=== PATIENT | female | born 1995 | race African-American/Black ===

== ENCOUNTER 2018-02-03 01:24 | Emergency (ER) | payer OTHER ==
[~2018-02-03] VITALS: Ht 177.8 cm; Wt 93.0 kg
--- NOTE | 2018-02-03 01:30 | NUR ---
PT BB PARENTS C/O OF GENERALIZED WEAKNESS, SOB, AND "FEELING LIKE IM IN A BUBBLE". PT IS AAOX4. PT STATES +N,-V/D. PT AMBULATED WITH STEADY GAIT TO ER BED 9. VSS. SKIN WNL. NO S/S OF ACUTE DISTRESS NOTED. RESP EVEN AND UNLABORED. PT PLACED ON MONITOR AND POX. PT SAFETY AND COMFORT MEASURES IN PLACE. AWAITING MD FOR EVAL.
[2018-02-03] MEDS ORDERED: ONDANSETRON HCL/PF - ER 4 MG/2 ML VIAL IV ONE (02:00)
[2018-02-03] MEDS ORDERED: IV NS 0.9% 1,000 ML BAG IV ONE (02:00)
[2018-02-03] MEDS ORDERED: ONDANSETRON HCL/PF 4 MG/2 ML VIAL ONE (02:17)
--- NOTE | 2018-02-03 02:23 | NUR ---
PT UNABLE TO GIVE URINE SAMPLE AT THIS TIME. MADE AWARE. WILL CONTINUE TO MONITOR PT.
[2018-02-03 02:27] LABS: BASOPHILS # (AUTO) 0.1 /CMM (0.0-0.2); BASOPHILS % (AUTO) 0.8 % (0.0-2.0); EOSINOPHILS % (AUTO) 0.5 % (0.0-6.0); HEMATOCRIT 39 % (33-45); HEMOGLOBIN 13.1 g/dL (11.5-14.8); LYMPHOCYTES # (AUTO) 1.7 /CMM (0.8-4.8); LYMPHOCYTES % (AUTO) 24.2 % (20.0-44.0); MEAN CORPUSCULAR HGB CONC 34 g/dl (31.0-36.0); MEAN CORPUSCULAR VOLUME 84 fL (82-100); MONOCYTES # (AUTO) 0.4 /CMM (0.1-1.30); NEUTROPHILS % (AUTO) 69.5 % (43.0-81.0); PLATELET COUNT (AUTO) 391 /CMM (150-450); RDW COEFFICIENT OF VARIATION 12.7 (11.5-15.0); RED BLOOD CELL COUNT(AUTO) 4.59 MIL/uL (4.0-5.2); WHITE BLOOD COUNT (AUTO) 7.2 K/uL (4.3-11.0)
[2018-02-03 02:43] LABS: D-DIMER 0.25 mg/L(FEU (0.17-0.50); INR 0.98 (0.87-1.13)
[2018-02-03 02:45] LABS: TROPONIN I < 0.017 ng/mL (0.00-0.056)
--- NOTE | 2018-02-03 02:56 | NUR ---
PT TO RESTROOM TO GIVE URINE SAMPLE
[2018-02-03 02:58] LABS: CALCIUM, SERUM 9.7 mg/dL (8.5-10.1); CARBON DIOXIDE 29 mmol/L (21-32); CHLORIDE 103 mmol/L (98-107); CREATININE 0.8 mg/dL (0.6-1.3); GLUCOSE 92 mg/dL (74-106); POTASSIUM 3.3 mmol/L (3.5-5.1); SODIUM SERUM 140 mmol/L (136-145); UREA NITROGEN, BLOOD 6 mg/dL (7-18)
[2018-02-03] MEDS ORDERED: POTASSIUM CHLORIDE 20 MEQ TAB.PRT.SR PO ONE ×2 (03:28→03:30)
[2018-02-03] MEDS ORDERED: ALPRAZOLAM 0.25 MG TABLET ONE (03:28)
[2018-02-03] MEDS ORDERED: ALPRAZOLAM 0.25 MG TABLET PO ONE (03:30)
[2018-02-03 04:22] VITALS: BP 128/87
--- NOTE | 2018-02-03 04:22 | NUR ---
Patient discharged to home in stable condition. Written and verbal after care instructions given. Patient verbalizes understanding of instruction.IV removed. Catheter intact and site benign. Pressure and 4x4 applied to site. No bleeding noted. PT ambulatory with a steady gait VITAL SIGNS WITHIN NORMAL LIMITS.
== END 2018-02-03 04:22 | disposition home or self-care (01) ==
LOC: ER 01:25
DX: F41.9 Anxiety disorder, unspecified (principal); E87.6 Hypokalemia; F15.10 Other stimulant abuse, uncomplicated; F12.10 Cannabis abuse, uncomplicated
CPT/HCPCS: 36415; 71045; 80048; 80305; 84484; 85025; 85378; 85730; 93005; 99285; G0480; J2405 ×2; J7030; Z7610

== ENCOUNTER 2019-07-19 15:50 | Inpatient (IN) | payer MEDICAID, OTHER ==
[~2019-07-19] VITALS: Ht 177.8 cm; Wt 81.6 kg
--- NOTE | 2019-07-19 16:05 | NUR ---
BIBRA 41 PT TOOK 60 PILLS OF HYDROXIZINE PER EMS. HX OF SI. PT AAOX3, SLOW TO ANS, DROWSY. +SI. DENIES CP, SOB, N/V, WEAKNESS @ THIS TIME. AWAITING EVAL BY ERMU[facility]. PLACED ON SAFETY INSTRUCTOR. WILL CONT TO MONITOR.
[2019-07-19] MEDS ORDERED: IV NS 0.9% 1,000 ML BAG IV ONE (16:30)
[2019-07-19 16:35] LABS: EOSINOPHILS % (AUTO) 1.1 % (0.0-6.0); HEMATOCRIT 36 % (33-45); HEMOGLOBIN 12.3 g/dL (11.5-14.8); LYMPHOCYTES % (AUTO) 23.9 % (20.0-44.0); MEAN CORPUSCULAR HGB CONC 34 g/dl (31.0-36.0); MEAN CORPUSCULAR VOLUME 89 fL (82-100); MONOCYTES # (AUTO) 0.2 /CMM (0.1-1.30); MONOCYTES % (AUTO) 5.4 % (2.0-12.0); NEUTROPHILS # (AUTO) 2.9 /CMM (1.8-8.9); NEUTROPHILS % (AUTO) 68.6 % (43.0-81.0); PLATELET COUNT (AUTO) 294 /CMM (150-450); WHITE BLOOD COUNT (AUTO) 4.2 K/uL (4.3-11.0)
[2019-07-19 16:44] LABS: CALCIUM, SERUM 8.7 mg/dL (8.5-10.1); CARBON DIOXIDE 27 mmol/L (21-32); CHLORIDE 107 mmol/L (98-107); CREATININE 0.9 mg/dL (0.6-1.3); GLUCOSE 96 mg/dL (74-106); POTASSIUM 3.3 mmol/L (3.5-5.1); SODIUM SERUM 140 mmol/L (136-145); UREA NITROGEN, BLOOD 6 mg/dL (7-18)
[2019-07-19 16:49] LABS: ALANINE AMINOTRANSFERASE 18 U/L (12-78); ALBUMIN 4.2 g/dL (3.4-5.0); ALCOHOL, BLOOD < 3 mg/dL (0-0); ALKALINE PHOSPHATASE 47 U/L (46-116); ASPARTATE AMINOTRANSFERASE 12 U/L (15-37); BILIRUBIN,DIRECT 0.2 mg/dL (0.0-0.2); BILIRUBIN,TOTAL 1.1 mg/dL (0.2-1.0); TOTAL PROTEIN, SERUM 7.3 g/dL (6.4-8.2)
[2019-07-19 16:50] LABS: ACETAMINOPHEN 0 ug/ml (10-30); SALICYLATE < 0.2 mg/dL (2.8-20.0)
[2019-07-19 17:01] LABS: CREATINE KINASE, TOTAL 50 U/L (26-192)
[2019-07-19] MEDS ORDERED: GABA600T12 PO (17:03)
[2019-07-19] MEDS ORDERED: VENL75TA4 PO (17:03)
[2019-07-19] MEDS ORDERED: HYDROXYZINE HCL (17:03)
[2019-07-19] MEDS ORDERED: PRAZ1CAP5 PO (17:09)
[2019-07-19] MEDS ORDERED: HYDR-3024 PO (17:09)
[2019-07-19 18:20] LABS: APPEARANCE,URINE Clear (CLEAR); BILIRUBIN,URINE Negative (NEGATIVE); BLOOD, URINE Large Ery/uL (NEGATIVE); COLOR,URINE Yellow (YELLOW); KETONES,URINE Negative (NEGATIVE); LEUKOCYTE ESTERASE ,URINE Negative (NEGATIVE); NITRITE, URINE Negative (NEGATIVE); PROTEIN,URINE Negative (NEGATIVE); UGLUCOSE Negative (NEGATIVE); UROBILINOGEN,URINE 0.2 EU/dL (0.2)
[2019-07-19 18:31] LABS: BACTERIA,URINE Few /HPF (None Seen); SQUAMOUS EPITHELIAL CELL,UR Few /HPF (None Seen); URINE AMORPHOUS URATE Few /HPF (None Seen); WBC,URINE 0-2 /HPF (0-3)
[2019-07-19 18:32] LABS: MUCUS,URINE Few /LPF (None Seen)
[2019-07-19] MEDS ORDERED: ONDANSETRON HCL/PF 4 MG/2 ML VIAL ONE (18:46)
--- NOTE | 2019-07-19 18:51 | NUR ---
PT AAOX4, SITTING UP, SKIN PINK WARM & DRY. RR EVEN & UNLABORED. MEDICATED FOR NAUSEA, PT SHANT WELL. FAMILY @ BS & WILL CONT TO MONITOR.
[2019-07-19] MEDS ORDERED: ONDANSETRON HCL/PF 4 MG/2 ML VIAL IV ONE (19:00)
[2019-07-19 20:00] VITALS: BP 100/62
--- NOTE | 2019-07-19 20:08 | NUR ---
NURSING SUP GAVE TELE BED 310-1.
[2019-07-19] MEDS ORDERED: MAGNESIUM HYDROXIDE 30 ML UDC PO PRN (21:00)
[2019-07-19] MEDS ORDERED: ONDANSETRON HCL/PF 4 MG/2 ML VIAL IVP PRN (21:00)
[2019-07-19] MEDS ORDERED: MAG HYDROX/AL HYDROX/SIMETH 30 ML UDC PO PRN (21:00)
[2019-07-19] MEDS ORDERED: ACETAMINOPHEN 325 MG TABLET PO PRN (21:00)
--- NOTE | 2019-07-19 21:24 | NUR ---
REPORT GIVEN TO JESSICA MCGUIRE FOR BRAVO
[2019-07-19] MEDS ORDERED: POTASSIUM CHLORIDE 20 MEQ TAB.PRT.SR PO ONE (21:30)
[2019-07-19 22:00] VITALS: BP 100/62
[2019-07-19] MEDS: IV 1/2NS 1000 ML 1,000 ML IV PRN (22:18)
--- NOTE | 2019-07-19 22:30 | NUR ---
MATHEMATICAL ENGINEER NOTE: RECEIVE PATIENT FROM ER, NO ACUTE DISTRESS NOTED, FAMILY AT BEDSIDE. IV TO RAC IN PLACE. ORIENTED PATIENT TO ROOM AND USE OF CALL LIGHT, SITTER AT BEDSIDE. CALLED ER TO CONFIRM IF POTASSIUM WAS GIVEN OR NOT IN ER. KDUR 20MEQ 1 TAB GIVEN ON FLOOR, PER MD ORDER. IV FLUID OF 1/2NS AT 80ML/HR STARTED. SUICIDE PRECAUTIONS OBSERVED WITH Q15MIN CHECKS BY SITTER. BED LOCKED AND IN LOWEST POSITION, CALL LIGHT IN REACH. WILL CONTINUE TO MONITOR. Addendum: 07/20/19 at 0202 by CANDI RANGEL RN TELE READING SR [id number]
[2019-07-20] VITALS (7 sets, daily range): BP systolic 92–112; BP diastolic 48–67
--- NOTE | 2019-07-20 06:15 | NUR ---
DIRECTOR OF CONTENT AND PROGRAMMING NOTE: PATIENT RESTING IN BED, NO ACUTE DISTRESS NOTED, FAMILY AT BEDSIDE. IV TO RAC IN PLACE, INFUSING 1/2MS AT 80ML/HR. SUICIDE PRECAUTIONS OBSERVED WITH Q15MIN CHECKS BY SITTER. BED LOCKED AND IN LOWEST POSITION, CALL LIGHT IN REACH. WILL ENDORSE TO DAY NURSE TO CONTINUE WITH PLAN OF CARE.
[2019-07-20 06:27] LABS: BASOPHILS % (AUTO) 0.6 % (0.0-2.0); EOSINOPHILS % (AUTO) 1.8 % (0.0-6.0); HEMATOCRIT 32 % (33-45); LYMPHOCYTES # (AUTO) 1.7 /CMM (0.8-4.8); LYMPHOCYTES % (AUTO) 34.4 % (20.0-44.0); MEAN CORPUSCULAR HGB CONC 34 g/dl (31.0-36.0); MEAN CORPUSCULAR VOLUME 88 fL (82-100); MONOCYTES # (AUTO) 0.4 /CMM (0.1-1.30); MONOCYTES % (AUTO) 7.5 % (2.0-12.0); NEUTROPHILS # (AUTO) 2.8 /CMM (1.8-8.9); NEUTROPHILS % (AUTO) 55.7 % (43.0-81.0); PLATELET COUNT (AUTO) 291 /CMM (150-450); RED BLOOD CELL COUNT(AUTO) 3.64 MIL/uL (4.0-5.2)
[2019-07-20 07:14] LABS: ALBUMIN 3.4 g/dL (3.4-5.0); BILIRUBIN,TOTAL 0.6 mg/dL (0.2-1.0); CALCIUM, SERUM 8.9 mg/dL (8.5-10.1); CREATININE 0.8 mg/dL (0.6-1.3); PHOSPHORUS 4.5 mg/dL (2.5-4.9); POTASSIUM 4.1 mmol/L (3.5-5.1); THYROID STIMULATING HORMONE 5.167 uIU/mL (0.358-3.74); TOTAL PROTEIN, SERUM 6.2 g/dL (6.4-8.2)
--- NOTE | 2019-07-20 07:30 | NUR ---
SUPERVISOR FRAMING MILL NOTES PT IN BED, AWAKE, ALERT AND ORIENTED, NO COMPLAINT OF PAIN OR ANY DISCOMFORT, RESPIRATIONS NORMAL, IV FLUIDS INFUSING WELL, MOM AT BEDSIDE, PT INFORMED OF PLAN OF CARE, VERBALIZED UNDERSTANDING.
[2019-07-20] MEDS: PANTOPRAZOLE 40 MG TABLET.DR PO SCH (08:03)
--- NOTE | 2019-07-20 09:04 | NUR ---
RN NOTE RECEIVED ORDER FROM DR SOLER TO DC TELEMETRY MONITORING, TRANSFER TO MED/SURG WITH ALL MEDS. THE ORDER IS NOTED AND CARRIED OUT.
--- NOTE | 2019-07-20 10:03 | NUR ---
RN MS NOTES PT SEEN AND EXAMINED BY DR. TSE, PLAN OF CARE DISCUSSED WITH PT, VERBALIZED UNDERSTANDING, ORDERS GIVEN, NOTED AND CARRIED OUT.
[2019-07-20] MEDS ORDERED: QUETIAPINE FUMARATE 25 MG TABLET PO ONE (10:30)
--- NOTE | 2019-07-20 14:00 | NUR ---
RN MS NOTES PT IN BED, AWAKE, ALERT AND ORIENTED, SITTER AND MOM AT BEDSIDE, TYLENOL GIVEN FOR MENSTRUAL CRAMPS, IV FLUIDS INFUSING WELL, TOLERATING CURRENT DIET, NO BEHAVIOR PROBLEM NOTED, COMPLIANT WITH CARE AND INTERVENTIONS.
[2019-07-20] MEDS: VENLAFAXINE XR 150 MG CAP.SR.24H PO SCH ×2 (18:06→18:32)
--- NOTE | 2019-07-20 19:00 | NUR ---
RN MS NOTES PT IN BED, RESTING, NO COMPLAINT OF PAIN, NOT IN DISTRESS, CALL LIGHT WITHIN REACH, SITTER AND FAMILY AT BEDSIDE, PM MEDS GIVEN ORDERED, COMPLIANT AND COOPERATIVE WITH MEDS, ALL NEEDS ATTENDED.
--- NOTE | 2019-07-20 19:30 | NUR ---
MS RN OPENING NOTE RECEIVED PATIENT IN BED. A/O X4. TOLERATING ROOM AIR. RESPIRATION ARE EVEN AND LABORED. NO S/S SOB NOTED. DENIES PAIN AT THIS TIME. IN NO APPARENT DISTRESS. IV ACCESS IN RAC#18 PATENT AND SALINE LOCKED, BED IS LOW AND LOCKED, SIDE RAILS UP X2, HOB ELEVATED 60 DEGREES. CALL LIGHT WITHIN REACH. FAMILY AT BEDSIDE, 1:1 SITTER AT BEDSIDE. WILL CONTINUE TO MONITOR.
[2019-07-20] MEDS ORDERED: QUETIAPINE FUMARATE 25 MG TABLET PO SCH (20:00)
[2019-07-20] MEDS ORDERED: QUETIAPINE FUMARATE 25 MG TABLET PO PRN (21:00)
[2019-07-20] MEDS: IV 1/2NS 1000 ML 1,000 ML IV PRN (21:54)
--- NOTE | 2019-07-21 06:23 | NUR ---
MS RN CLOSING NOTE PATIENT IN BED. A/O X4. TOLERATING ROOM AIR. RESPIRATION ARE EVEN AND LABORED. NO SOB NOTED. NO C/O PAIN . NO DISTRESS NOTED. IV ACCESS IN RAC#18 PATENT AND WAS RUNNING 1/2NS @80ML/HR FOR 6 HR, REMOVED D/T PATIENTS REQUEST FOR COMFORT THROUGHOUT NIGHT, BED IS LOW AND LOCKED, SIDE RAILS UP X2, HOB ELEVATED 30GREES. CALL LIGHT WITHIN REACH. FAMILY AT BEDSIDE, 1:1 SITTER AT BEDSIDE. WILL ENDORSE TO NEXT SHIFT FOR BRAVO
[2019-07-21 07:02] LABS: BASOPHILS % (AUTO) 0.9 % (0.0-2.0); EOSINOPHILS % (AUTO) 2.3 % (0.0-6.0); HEMATOCRIT 35 % (33-45); HEMOGLOBIN 11.8 g/dL (11.5-14.8); LYMPHOCYTES # (AUTO) 1.8 /CMM (0.8-4.8); LYMPHOCYTES % (AUTO) 34.4 % (20.0-44.0); MEAN CORPUSCULAR HGB CONC 34 g/dl (31.0-36.0); MEAN CORPUSCULAR VOLUME 88 fL (82-100); MONOCYTES # (AUTO) 0.4 /CMM (0.1-1.30); MONOCYTES % (AUTO) 7.4 % (2.0-12.0); NEUTROPHILS # (AUTO) 2.8 /CMM (1.8-8.9); PLATELET COUNT (AUTO) 300 /CMM (150-450); RED BLOOD CELL COUNT(AUTO) 3.93 MIL/uL (4.0-5.2); WHITE BLOOD COUNT (AUTO) 5.1 K/uL (4.3-11.0)
[2019-07-21 07:25] LABS: CALCIUM, SERUM 8.8 mg/dL (8.5-10.1); CREATININE 0.9 mg/dL (0.6-1.3); MAGNESIUM 1.9 mg/dL (1.8-2.4); PHOSPHORUS 4.5 mg/dL (2.5-4.9); POTASSIUM 3.7 mmol/L (3.5-5.1)
--- NOTE | 2019-07-21 07:30 | NUR ---
RN MS NOTES PT IN BED, AWAKE, ALERT AND ORIENTED, CALM AND COOPERATIVE WITH CARE AND MEDICATIONS, IV FLUIDS INFUSING WELL, CALL LIGHT WITHIN REACH, MOM AT BEDSIDE, SEEN AND EXAMINED BY DR. ROBERTS.
[2019-07-21 08:00] VITALS: BP 119/74
[2019-07-21] MEDS: PANTOPRAZOLE 40 MG TABLET.DR PO SCH (08:24)
[2019-07-21] MEDS ORDERED: VENL150C2 PO (15:43)
[2019-07-21] MEDS ORDERED: QUET25TA PO (15:43)
[2019-07-21 15:58] VITALS: BP 101/61
--- NOTE | 2019-07-21 16:40 | NUR ---
RN MS NOTES PT IN BED, AWAKE, ALERT AND ORIENTED, NO COMPLAINT OF PAIN OR ANY DISCOMFORT, RESPIRATIONS NORMAL, IV FLUIDS INFUSING WELL, NO BEHAVIOR PROBLEM NOTED DURING THE SHIFT, SEEN BY DR. ROBERTS, PLAN OF CARE DISCUSSED WITH PT, VERBALIZED UNDERSTANDING, MD CLEARED PT FOR DISCHARGE, NEW PRESCRIPTIONS GIVEN, DISCHARGE ORDER GIVEN BY DR. KOHLI, DISCHARGE AND MEDICATION INSTRUCTIONS PROVIDED TO PT AND MOM, VERBALIZED UNDERSTANDING, BELONGINGS ACCOUNTED FOR, ASSISTED BY MEDICAL IMAGING TECH TO HOSPITAL LOBBY, LEFT IN STABLE CONDITION.
== END 2019-07-21 16:45 | disposition home or self-care (01) | DRG 817 ==
LOC: ER 15:52 → TELE 20:44 → MED 07-20 09:10
PROVIDERS: ADMIT Nurse Practitioner Acute Care; ATTEND Family Medicine
DX: T43.592A Poisoning by other antipsychotics and neuroleptics, intentional self-harm, initial encounter (principal); E03.9 Hypothyroidism, unspecified; E87.6 Hypokalemia; F43.10 Post-traumatic stress disorder, unspecified; Y92.89 Other specified places as the place of occurrence of the external cause; Z91.5 Personal history of self-harm; F41.9 Anxiety disorder, unspecified; F32.9 Major depressive disorder, single episode, unspecified; F90.9 Attention-deficit hyperactivity disorder, unspecified type
CPT/HCPCS: 36415; 80048-TC; 80053-TC; 80061-TC; 80076-TC; 80305; 81000-TC; 82550-TC; 83605-TC; 83735-TC; 84100-TC; 84439-TC; 84443-TC; 84703-TC; 85025-TC; 87081-TC; G0378; G0480; J2405; J3490; J7030

== ENCOUNTER 2020-04-13 19:06 | Emergency (ER) | payer MEDICAID, OTHER ==
[~2020-04-13] VITALS: Ht 177.8 cm; Wt 79.4 kg
[~2020-04-13 19:06] MED LIST: GABA600T12 PO; QUET25TA PO; VENL150C2 PO
--- NOTE | 2020-04-13 19:21 | NUR ---
ANAHI 89 FROM HOME FOR OVERDOSE ON TRAZODONE. PER PT SHE TOOK 10 TABS OF TRAZODONE 150MG EACH IN SEVERAL INTERVALS. DENIED SI. PT CURRENTLY A, OX4. REPORTED FEELING A LITTLE WEAK AND SLEEPY DUE TO THE MEDICATIONS SHE TOOK. VSS. PT WAS TRANSFERRED TO BED 4. WILL CONT TO MONITOR ,
--- NOTE | 2020-04-13 19:26 | NUR ---
BETTIE COOL AT THE BED SIDE
--- NOTE | 2020-04-13 20:00 | NUR ---
RELOCATION COMMISSIONER AT BED SIDE
--- NOTE | 2020-04-13 20:00 | NUR ---
BLOOD AND URINE COLLECTED AND SENT TO LAB
[2020-04-13 20:05] LABS: BASOPHILS # (AUTO) 0.1 /CMM (0.0-0.2); BASOPHILS % (AUTO) 0.7 % (0.0-2.0); EOSINOPHILS % (AUTO) 0.2 % (0.0-6.0); HEMATOCRIT 36 % (33-45); HEMOGLOBIN 12.1 g/dL (11.5-14.8); LYMPHOCYTES # (AUTO) 1.2 /CMM (0.8-4.8); LYMPHOCYTES % (AUTO) 13.5 % (20.0-44.0); MEAN CORPUSCULAR HGB CONC 34 g/dl (31.0-36.0); MEAN CORPUSCULAR VOLUME 91 fL (82-100); MONOCYTES # (AUTO) 0.5 /CMM (0.1-1.30); MONOCYTES % (AUTO) 6.1 % (2.0-12.0); NEUTROPHILS # (AUTO) 7.2 /CMM (1.8-8.9); NEUTROPHILS % (AUTO) 79.5 % (43.0-81.0); PLATELET COUNT (AUTO) 288 /CMM (150-450); RED BLOOD CELL COUNT(AUTO) 3.91 MIL/uL (4.0-5.2)
[2020-04-13 20:29] LABS: APPEARANCE,URINE Clear (CLEAR); BILIRUBIN,URINE Negative (NEGATIVE); BLOOD, URINE Trace-lysed Ery/uL (NEGATIVE); COLOR,URINE Yellow (YELLOW); KETONES,URINE 40 (NEGATIVE); LEUKOCYTE ESTERASE ,URINE Negative (NEGATIVE); NITRITE, URINE Negative (NEGATIVE); PH,URINE 5.5 (5.0-8.0); PROTEIN,URINE Negative (NEGATIVE); UGLUCOSE Negative (NEGATIVE); UROBILINOGEN,URINE 0.2 EU/dL (0.2)
[2020-04-13 20:31] LABS: CALCIUM, SERUM 9.4 mg/dL (8.5-10.1); CREATININE 0.8 mg/dL (0.6-1.3); POTASSIUM 3.5 mmol/L (3.5-5.1)
[2020-04-13 20:36] LABS: ALBUMIN 4.4 g/dL (3.4-5.0); BILIRUBIN,DIRECT 0.2 mg/dL (0.0-0.2); BILIRUBIN,TOTAL 0.7 mg/dL (0.2-1.0); SALICYLATE 1.1 mg/dL (2.8-20.0); TOTAL PROTEIN, SERUM 7.6 g/dL (6.4-8.2)
[2020-04-13 20:45] LABS: BACTERIA,URINE Rare /HPF (None Seen); RBC,URINE 0-2 /HPF (0-2); SQUAMOUS EPITHELIAL CELL,UR Few /HPF (None Seen); WBC,URINE 0-2 /HPF (0-3)
--- NOTE | 2020-04-13 23:00 | NUR ---
pt in bed awake and responsive,VSS. reported feeling much better and willing to leave. PA made aware
--- NOTE | 2020-04-13 23:10 | NUR ---
BETTIE COOL AT THE BED SIDE
--- NOTE | 2020-04-13 23:41 | NUR ---
PT IS MEDICALLY STABLE FOR D/C. AMBULATING WELL W/ STEADY GAITS. VSS. Patient discharged to home in stable condition. Written and verbal after care instructions given. Patient verbalizes understanding of instruction. MOM PICKED UP THE PT,
[2020-04-13 23:43] VITALS: BP 120/61
== END 2020-04-13 23:43 | disposition home or self-care (01) ==
LOC: ER 19:06
DX: T43.211A Poisoning by selective serotonin and norepinephrine reuptake inhibitors, accidental (unintentional), initial encounter (principal); F43.10 Post-traumatic stress disorder, unspecified; F90.9 Attention-deficit hyperactivity disorder, unspecified type; G47.00 Insomnia, unspecified; Z79.899 Other long term (current) drug therapy; Y92.89 Other specified places as the place of occurrence of the external cause
CPT/HCPCS: 36415; 80048; 80076; 80305; 80307; 80329; 81001; 84703; 85025; 93005; 99285; G0480; 81000-TC

== ENCOUNTER 2021-10-22 04:09 | Emergency (ER) | payer OTHER ==
[~2021-10-22] VITALS: Ht 180.3 cm; Wt 77.1 kg
--- NOTE | 2021-10-22 04:42 | NUR ---
PT BIBS FROM HOME C/O "LOWER ABDOMINAL PAIN WITH VAGINAL BLEEDING AFTER IUD CAME OUT". PT A/OX4. TOLERATING R/A WELL WITH NO SOB.
--- NOTE | 2021-10-22 05:20 | NUR ---
lac #20 , labs drawn, connected to monitor.
[2021-10-22 05:21] LABS: BASOPHILS % (AUTO) 0.5 % (0.0-2.0); EOSINOPHILS % (AUTO) 1.1 % (0.0-6.0); HEMATOCRIT 37 % (33-45); HEMOGLOBIN 12.7 g/dL (11.5-14.8); LYMPHOCYTES % (AUTO) 22.6 % (20.0-44.0); MEAN CORPUSCULAR HGB CONC 34 g/dl (31.0-36.0); MEAN CORPUSCULAR VOLUME 94 fL (82-100); MONOCYTES # (AUTO) 0.8 K/uL (0.1-1.30); MONOCYTES % (AUTO) 8.6 % (2.0-12.0); NEUTROPHILS # (AUTO) 6.1 K/uL (1.8-8.9); NEUTROPHILS % (AUTO) 67.2 % (43.0-81.0); PLATELET COUNT (AUTO) 411 K/uL (150-450); RED BLOOD CELL COUNT(AUTO) 3.96 MIL/uL (4.0-5.2)
--- NOTE | 2021-10-22 05:30 | NUR ---
ENGINEERING AND SCIENTIFIC PROGRAMMER AT BEDSIDE.
[2021-10-22 05:57] LABS: CREATININE 0.9 mg/dL (0.6-1.3); POTASSIUM 3.9 mmol/L (3.5-5.1)
--- NOTE | 2021-10-22 06:05 | NUR ---
URINE SENT TO LAB
[2021-10-22 06:18] LABS: ALBUMIN 3.9 g/dL (3.4-5.0); BILIRUBIN,DIRECT 0.2 mg/dL (0.0-0.2); BILIRUBIN,TOTAL 0.6 mg/dL (0.2-1.0); TOTAL PROTEIN, SERUM 7.5 g/dL (6.4-8.2)
[2021-10-22] MEDS ORDERED: ACETAMINOPHEN ES 500 MG TABLET ONE (06:22)
[2021-10-22 06:25] VITALS: BP 116/86
[2021-10-22] MEDS ORDERED: ACETAMINOPHEN ES 500 MG TABLET PO ONE (06:30)
[2021-10-22] MEDS ORDERED: IBUPROFEN 600 MG TABLET PO ONE (06:30)
--- NOTE | 2021-10-22 07:02 | NUR ---
Patient discharged to home in stable condition. Written and verbal after care instructions given. Patient verbalizes understanding of instruction.Pt ambulatory with a steady gait.
[2021-10-22 08:26] LABS: BILIRUBIN,URINE SMALL (NEGATIVE); COLOR,URINE YELLOW (YELLOW); LEUKOCYTE ESTERASE ,URINE NEGATIVE (NEGATIVE); NITRITE, URINE NEGATIVE (NEGATIVE); PROTEIN,URINE NEGATIVE (NEGATIVE); UGLUCOSE NEGATIVE (NEGATIVE); UROBILINOGEN,URINE 0.2 EU/dL (0.2)
[2021-10-22 09:00] LABS: BACTERIA,URINE Few /HPF (None Seen); RBC,URINE 0-2 /HPF (0-2); SQUAMOUS EPITHELIAL CELL,UR Few /HPF (None Seen); WBC,URINE 0-2 /HPF (0-3)
[2021-10-22 09:01] LABS: MUCUS,URINE Few /LPF (None Seen)
== END 2021-10-22 07:03 | disposition home or self-care (01) ==
LOC: ER 04:22
DX: T83.83XA Hemorrhage due to genitourinary prosthetic devices, implants and grafts, initial encounter (principal); G47.09 Other insomnia; Z86.59 Personal history of other mental and behavioral disorders; Z88.6 Allergy status to analgesic agent; Z79.84 Long term (current) use of oral hypoglycemic drugs; Z79.899 Other long term (current) drug therapy
CPT/HCPCS: 36415; 76856-TC; 80048-TC; 80076-TC; 81001; 84702-TC; 85025-TC; 85730-TC; 86850-TC

== ENCOUNTER 2023-04-07 19:39 | Emergency (ER) | payer OTHER ==
[~2023-04-07] VITALS: Ht 177.8 cm; Wt 83.9 kg
[2023-04-07 20:15] VITALS: BP 120/80; TEMP 98.2; O2SAT 100
--- NOTE | 2023-04-07 21:07 | NUR ---
CALLED PT , NO RESPONSE
--- NOTE | 2023-04-07 21:37 | NUR ---
CALLED PT , NO RESPONSE
--- NOTE | 2023-04-07 22:09 | NUR ---
CALLED PT TO TRIAGE , NO RESPONSE
== END 2023-04-07 22:34 | disposition left against medical advice (07) ==
LOC: ER 19:42
DX: M54.2 Cervicalgia (principal); M54.9 Dorsalgia, unspecified; Z53.21 Procedure and treatment not carried out due to patient leaving prior to being seen by health care provider